=== PATIENT | female | born 1995 | race Caucasian/White ===

== ENCOUNTER → 2017-06-15 | Outpatient (CLI) | payer OTHER ==
[~2017-06-15] MED LIST: ALLGUNK; BCPILLS PO; LVXUNK; ORTHOTRICYCLINE
[2017-06-15 18:40] LABS: BLOOD UREA NITROGEN 8 mg/dl (7-18); BUN/CREATININE RATIO 10.8 (10-20); CALCIUM 8.9 mg/dl (8.5-10.1); CARBON DIOXIDE 26 mmol/L (21-32); CHLORIDE 104 mmol/L (98-107); CREATININE 0.77 mg/dl (0.60-1.20); GLUCOSE 81 mg/dl (70-99); POTASSIUM 4.3 mmol/L (3.5-5.1); SODIUM 136 mmol/L (136-145)
[2017-06-15 18:51] LABS: CHOLESTEROL 203 mg/dl (0-200); CHOLESTEROL/HDL RATIO 2.9; FERRITIN 60.2 ng/ml (8.0-388.0); HDL CHOLESTEROL 69 mg/dl; LDL CHOLESTEROL CALCULATED 95 mg/dl; TRIGLYCERIDES 195 mg/dl (0-150); VERY LOW DENSITY LIPOPROT CALC 39 mg/dl
[2017-06-15 19:57] LABS: INSULIN FASTING 11.9 mU/L (3-25)
[2017-06-16 06:37] LABS: ESTIMATED AVERAGE GLUCOSE 111 mg/dl; HA1C FLAG Normal (Normal)
== END | disposition home or self-care (01) ==
LOC: C.LABPBG 10:50
PROVIDERS: ATTEND Student in an Organized Health Care Education/Training Program
DX: E66.9 Obesity, unspecified (principal); E03.9 Hypothyroidism, unspecified; D69.1 Qualitative platelet defects

== ENCOUNTER → 2017-06-19 | Outpatient (CLI) | payer OTHER ==
--- NOTE | 2017-06-19 11:17 | DIAGNOSTIC IMAGING REPORT ---
SOFT TISS HEAD/NECK-THYROID CLINICAL HISTORY: 22 years-old Female presenting with dysphagia. TECHNIQUE: Real-time grayscale and color and spectral Doppler ultrasound imaging of the thyroid and base of the neck was performed. COMPARISON: None. FINDINGS: Right lobe: Heterogeneous echotexture. The right lobe of the thyroid measures 4.3 x 1.6 x 1.5 cm. No nodules. No parenchymal hyperemia. Left lobe: Heterogeneous echotexture. The left lobe of the thyroid measures 4.4 x 1.5 x 1.5 cm. No nodules. No parenchymal hyperemia. Isthmus: The isthmus measures 5 mm in thickness. No nodules. IMPRESSION: Heterogeneity of the thyroid parenchyma could suggest primary thyroid disease, such as Edouard's thyroiditis or Graves' disease. Electronically signed by: Neftaly Wood M.D. 06/19/2017 11:15 AM Dictated Date/Time: 06/19/2017 11:14 AM
== END | disposition home or self-care (01) ==
LOC: C.ULTR 09:51
PROVIDERS: ATTEND Internal Medicine Endocrinology, Diabetes & Metabolism
DX: R13.10 Dysphagia, unspecified (principal); E07.9 Disorder of thyroid, unspecified